=== PATIENT | male | born 1990 | race Caucasian/White ===

== ENCOUNTER 2019-03-22 21:27 | Emergency (ER) | payer OTHER ==
[~2019-03-22] VITALS: Ht 170.2 cm; Wt 59.0 kg
[2019-03-22] MEDS ORDERED: FLUOXETINE HCL40 MG ORAL (22:04)
--- NOTE | 2019-03-22 22:14 | NUR ---
ED Nurse Note: pt walked in c/o right eye pain, pt reports he felt like something was in his eye, tried to wash it out with water but continue to have pain. noted redness and swelling in right orbital region. will cont monitor.
[2019-03-22 22:15] VITALS: BP 155/94
[2019-03-22] MEDS ORDERED: Tetracaine 0.5% Opth 4ml Soln RIGHT EYE ONE (22:15)
--- NOTE | 2019-03-22 22:16 | Emergency Room Report ---
History of Present Illness General Chief Complaint: Eye Problems Source: Patient Present Illness HPI Patient presents with complaints of increased discomfort redness and swelling to the right eye this started around 3:00 in the afternoon patient reports that he was on the computer When this happened denies any obvious Contact with foreign body he feels that there is a Certain area on the upper eyelid The feels irritated Denies any visual change denies any headache Allergies: Coded Allergies: No Known Allergies (Unverified , 03/22/19) Patient History Past Medical History: see triage record Reviewed Nursing Documentation: PMH: Agreed; PSxH: Agreed Nursing Documentation-PMH Past Medical History: No History, Except For Review of Systems All Other Systems: negative except mentioned in HPI Physical Exam Vital Signs Date Time Temp Pulse Resp B/P (MAP) Pulse Ox O2 Delivery O2 Flow Rate FiO2 03/22/19 22:00 98.4 78 14 155/94 (114) 95 Room Air Sp02 EP Interpretation: reviewed, normal General Appearance: well appearing, no apparent distress Head: normocephalic, atraumatic Eyes: right eye other - Conjunctivitis, pupil otherwise reacting appropriately also some increased erythema in the upper and lower eyelid no obvious proptosis, ENT: normal pharynx, no angioedema Neck: supple Respiratory: lungs clear, no respiratory distress Cardiovascular #1: regular rate, rhythm Gastrointestinal: normal bowel sounds, non tender Genitourinary: no CVA tenderness Musculoskeletal: normal inspection Neurologic: alert, oriented x3, responsive Skin: other - As above Lymphatic: no adenopathy Medical Decision Making Diagnostic Impression: Primary Impression: Conjunctivitis ER Course Multiple differentials including but not limited to abrasions, corneal ulcer, conjunctivitis considered Patient had tetracaine drops initiated with a stain no obvious uptake is seen however patient does have significant conjunctivitis on the right side Patient is treated symptomatically I cannot appreciate any obvious periorbital cellulitis at this time Patient however does show significant reactive changes and will be Treated conservatively with close outpatient follow-up Last Vital Signs Date Time Temp Pulse Resp B/P (MAP) Pulse Ox O2 Delivery O2 Flow Rate FiO2 03/22/19 22:00 98.4 78 14 155/94 (114) 95 Room Air Status: improved Disposition: HOME, SELF-CARE Condition: Improved Scripts Gentamicin Sulfate* (GENTAK*) 5 Ml Drops 1 DROP RIGHT EYE Q4H for 7 Days, #1 DROP 0 Refills Prov: Anh Scott DO 03/22/19 Diphenhydramine Hcl* (BENADRYL*) 25 Mg Capsule 25 MG ORAL Q6H PRN for Itching, #20 CAP Prov: Anh Scott DO 03/22/19 Methylprednisolone (Methylprednisolone*) 4MG Dspk 4 MG ORAL DIRECTED for 6 Days, #21 EA 0 Refills Day 1: Two tablets before breakfast, one after lunch, one after dinner, and two at bedtime. If started late in the day, take all six tablets at once or divide into two or three doses, unless otherwise directed by prescriber. Day 2: One tablet before breakfast, one after lunch, one after dinner, and two at bedtime Day 3: One tablet before breakfast, one after lunch, one after dinner, and one at bedtime Day 4: One tablet before breakfast, one after lunch, and one at bedtime Day 5: One tablet before breakfast and one at bedtime Day 6: One tablet before breakfast Prov: Anh Scott DO 03/22/19 Additional Instructions: Patient is provided with the discharge instructions notified to follow up with primary doctor in the next 2-3 days otherwise return to the er with any worsening symptoms. Please note that this report is being documented using Cloud Content technology. This can lead to erroneous entry secondary to incorrect interpretation by the dictating instrument. Anh Scott DO Mar 22, 2019 22:15
[2019-03-22] MEDS ORDERED: BENADRYL25 MG ORAL (23:04)
[2019-03-22] MEDS ORDERED: GENTAK5 ML RIGHT EYE (23:04)
[2019-03-22] MEDS ORDERED: MEDROL DOSEPAK4 MG ORAL (23:04)
[2019-03-22 23:21] VITALS: BP 128/76
--- NOTE | 2019-03-22 23:21 | NUR ---
ED Nurse Note: PT CLEARED TO BE D/C PER ERMD, PT DISCHARGE AND AFTERCARE INSTRUCTION PROVIDED W/ PRESCRIPTION, PT EDUCATION DONE VIA DISCUSSION AND HANDOUT, PT ADVISED TO FOLLOW UP WITH residence director/ OR RETURN TO ED IF CHANGES IN CONDITION, VSS, AMBULATORY W/ STEADY GAIT, LEFT W/ ALL BELONGINGS, PT STATES HE IS USING LYFT TO GO HOME.
== END 2019-03-22 23:21 | disposition home or self-care (01) ==
LOC: EMR 22:30
DX: H10.9 Unspecified conjunctivitis (principal)
CPT/HCPCS: 99282; J7512